=== PATIENT | male | born 1955 | race Caucasian/White ===

== ENCOUNTER 2017-11-19 11:21 | Emergency (ER) | payer SELFPAY ==
[~2017-11-19] VITALS: Ht 182.9 cm; Wt 109.8 kg
[2017-12-10] MEDS ORDERED: ROPIVACAINE 246.25 MG, EPINEPHRINE HCL 1:1000 0.5 MG, CLONIDINE HCL 0.08 MG, KETOROLAC ... INJ ONE ×5 (07:30)
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
--- OUTSIDE RECORDS SUMMARY | 2018-02-27 14:31 | XMS REPORT ---
Author Author [facility] Address Unknown Phone Unavailable Care Team Providers Care Inventory Control Supervisor Name Role Phone BRIDGET SALMON Unavailable Unavailable Problems This patient has no known problems. Allergies, Adverse Reactions, Alerts This patient has no known allergies or adverse reactions. Medications This patient has no known medications. Results Test Description Test Time Test Comments Text Results Atomic Results Result Comments POCT-GLUCOSE METER 2016-07-15 08:08:00 POC-GLUCOSE METER (BEAKER) (test goba=4533) 186 mg/dL 70-110 TESTED AT [facility] [address] [address] CBC W/PLT COUNT & AUTO [id number] 06:59:00* Test Item Value Reference Range Comments WHITE BLOOD CELL COUNT (BEAKER) (test ugdj=891) 7.1 K/ L 4.0-10.0 RED BLOOD CELL COUNT (BEAKER) (test qfqw=020) 3.43 M/ L 4.20-5.80 HEMOGLOBIN (BEAKER) (test vvkm=319) 11.0 GM/DL 13.0-16.8 HEMATOCRIT (BEAKER) (test nbhn=681) 32.1 % 40.0-50.0 MEAN CORPUSCULAR VOLUME (BEAKER) (test psti=599) 93.5 fL 82.0-98.0 MEAN CORPUSCULAR HEMOGLOBIN (BEAKER) (test dtii=364) 31.9 pg 27.0-33.0 MEAN CORPUSCULAR HEMOGLOBIN CONC (BEAKER) (test zemc=737) 34.2 GM/DL 32.0- 36.0 RED CELL DISTRIBUTION WIDTH (BEAKER) (test yxco=748) 13.1 % 10.3-14.2 PLATELET COUNT (BEAKER) (test bxwy=398) 351 K/CU MM 150-430 MEAN PLATELET VOLUME (BEAKER) (test gsyb=926) 5.4 fL 6.5-10.5 NUCLEATED RED BLOOD CELLS (BEAKER) (test jadj=812) 0 /100 WBC 0-0 NEUTROPHILS RELATIVE PERCENT (BEAKER) (test jmbl=962) 55 % LYMPHOCYTES RELATIVE PERCENT (BEAKER) (test scgy=996) 26 % MONOCYTES RELATIVE PERCENT (BEAKER) (test zdym=509) 12 % EOSINOPHILS RELATIVE PERCENT (BEAKER) (test nkjb=474) 7 % BASOPHILS RELATIVE PERCENT (BEAKER) (test dgzt=105) 1 % NEUTROPHILS ABSOLUTE COUNT (BEAKER) (test piee=596) 3.84 K/ L 1.80-8.00 LYMPHOCYTES ABSOLUTE COUNT (BEAKER) (test aelv=410) 1.82 K/ L 1.48-4.50 MONOCYTES ABSOLUTE COUNT (BEAKER) (test nvxv=867) 0.87 K/ L 0.00-1.30 EOSINOPHILS ABSOLUTE COUNT (BEAKER) (test hwzv=669) 0.48 K/ L 0.00-0.50 BASOPHILS ABSOLUTE COUNT (BEAKER) (test gmis=981) 0.05 K/ L 0.00-0.20 0.00BASIC METABOLIC [id number] 06:42:00* Test Item Value Reference Range Comments SODIUM (BEAKER) (test njws=645) 136 meq/L 136-145 POTASSIUM (BEAKER) (test buzw=424) 4.2 meq/L 3.5-5.1 CHLORIDE (BEAKER) (test pusq=641) 100 meq/L 98-107 CO2 (BEAKER) (test lxxv=038) 25 meq/L 22-29 BLOOD UREA NITROGEN (BEAKER) (test wuyh=129) 12 mg/dL 7-21 CREATININE (BEAKER) (test vezg=732) 1.13 mg/dL 0.57-1.25 GLUCOSE RANDOM (BEAKER) (test koiy=204) 158 mg/dL 70-105 CALCIUM (BEAKER) (test rltt=919) 9.4 mg/dL 8.4-10.2 EGFR (BEAKER) (test siax=1210) 66 mL/min/1.73 sq m ESTIMATED GFR IS NOT ACCURATE CREATININE CLEARANCE IN PREDICTING GLOMERULAR FILTRATION RATE. ESTIMATED GFR IS NOT APPLICABLE FOR DIALYSIS PATIENTS. POCT-GLUCOSE [id number] 21:23:00* Test Item Value Reference Range Comments POC-GLUCOSE METER (BEAKER) (test qiry=5217) 323 mg/dL 70-110 TESTED AT [address] [address] POCT-GLUCOSE [id number] 17:41:00* Test Item Value Reference Range Comments POC-GLUCOSE METER (BEAKER) (test zajh=5568) 225 mg/dL 70-110 TESTED AT [address] [address] POCT-GLUCOSE [id number] 11:49:00* Test Item Value Reference Range Comments POC-GLUCOSE METER (BEAKER) (test wtca=3777) 226 mg/dL 70-110 TESTED AT [address] [address] POCT-GLUCOSE [id number] 07:33:00* Test Item Value Reference Range Comments POC-GLUCOSE METER (BEAKER) (test boud=3837) 175 mg/dL 70-110 TESTED AT [address] [address] BASIC METABOLIC [id number] 07:18:00* Test Item Value Reference Range Comments SODIUM (BEAKER) (test uxun=246) 136 meq/L 136-145 POTASSIUM (BEAKER) (test xvnm=077) 3.8 meq/L 3.5-5.1 CHLORIDE (BEAKER) (test xkpr=068) 101 meq/L 98-107 CO2 (BEAKER) (test kkfe=963) 25 meq/L 22-29 BLOOD UREA NITROGEN (BEAKER) (test lyyo=158) 15 mg/dL 7-21 CREATININE (BEAKER) (test pusb=903) 1.08 mg/dL 0.57-1.25 GLUCOSE RANDOM (BEAKER) (test ovog=442) 167 mg/dL 70-105 CALCIUM (BEAKER) (test hjvl=980) 9.0 mg/dL 8.4-10.2 EGFR (BEAKER) (test hwgc=8557) 69 mL/min/1.73 sq m ESTIMATED GFR IS NOT ACCURATE CREATININE CLEARANCE IN PREDICTING GLOMERULAR FILTRATION RATE. ESTIMATED GFR IS NOT APPLICABLE FOR DIALYSIS PATIENTS. CBC W/PLT COUNT & AUTO [id number] 06:50:00* Test Item Value Reference Range Comments WHITE BLOOD CELL COUNT (BEAKER) (test ekfy=191) 5.4 K/ L 4.0-10.0 RED BLOOD CELL COUNT (BEAKER) (test fypa=098) 3.08 M/ L 4.20-5.80 HEMOGLOBIN (BEAKER) (test nczv=522) 9.7 GM/DL 13.0-16.8 HEMATOCRIT (BEAKER) (test qcwy=960) 28.5 % 40.0-50.0 MEAN CORPUSCULAR VOLUME (BEAKER) (test gpyw=568) 92.8 fL 82.0-98.0 MEAN CORPUSCULAR HEMOGLOBIN (BEAKER) (test vcru=068) 31.6 pg 27.0-33.0 MEAN CORPUSCULAR HEMOGLOBIN CONC (BEAKER) (test smzb=589) 34.0 GM/DL 32.0- 36.0 RED CELL DISTRIBUTION WIDTH (BEAKER) (test wmio=279) 13.2 % 10.3-14.2 PLATELET COUNT (BEAKER) (test pqxs=946) 292 K/CU MM 150-430 MEAN PLATELET VOLUME (BEAKER) (test ccvf=130) 5.5 fL 6.5-10.5 NUCLEATED RED BLOOD CELLS (BEAKER) (test hiti=565) 0 /100 WBC 0-0 NEUTROPHILS RELATIVE PERCENT (BEAKER) (test uymd=174) 65 % LYMPHOCYTES RELATIVE PERCENT (BEAKER) (test kmmz=969) 23 % MONOCYTES RELATIVE PERCENT (BEAKER) (test xzpl=167) 3 % EOSINOPHILS RELATIVE PERCENT (BEAKER) (test byep=722) 8 % BASOPHILS RELATIVE PERCENT (BEAKER) (test ytgs=565) 1 % NEUTROPHILS ABSOLUTE COUNT (BEAKER) (test lsfd=773) 3.52 K/ L 1.80-8.00 LYMPHOCYTES ABSOLUTE COUNT (BEAKER) (test bqqw=607) 1.23 K/ L 1.48-4.50 MONOCYTES ABSOLUTE COUNT (BEAKER) (test wswp=209) 0.18 K/ L 0.00-1.30 EOSINOPHILS ABSOLUTE COUNT (BEAKER) (test awtx=143) 0.43 K/ L 0.00-0.50 BASOPHILS ABSOLUTE COUNT (BEAKER) (test uiay=040) 0.05 K/ L 0.00-0.20 0.00POCT-GLUCOSE [id number] 23:48:00* Test Item Value Reference Range Comments POC-GLUCOSE METER (BEAKER) (test rvmx=4023) 235 mg/dL 70-110 TESTED AT [facility] [address] [address] POCT-GLUCOSE [id number] 17:23:00* Test Item Value Reference Range Comments POC-GLUCOSE METER (BEAKER) (test vzpd=9387) 168 mg/dL 70-110 TESTED AT [facility] [address] [address] POCT-GLUCOSE [id number] 12:58:00* Test Item Value Reference Range Comments POC-GLUCOSE METER (BEAKER) (test kvnu=1127) 271 mg/dL 70-110 TESTED AT [place] [id number] [address] POCT-GLUCOSE [id number] 07:34:00* Test Item Value Reference Range Comments POC-GLUCOSE METER (BEAKER) (test oiqo=2483) 154 mg/dL 70-110 TESTED AT [place] [id number] [facility] [address] [address] [id number] 03:59:00* Test Item Value Reference Range Comments MAGNESIUM (BEAKER) (test kauv=118) 1.8 mg/dL 1.6-2.6 BASIC METABOLIC [id number] 03:59:00* Test Item Value Reference Range Comments SODIUM (BEAKER) (test sgky=131) 134 meq/L 136-145 POTASSIUM (BEAKER) (test acgu=485) 4.3 meq/L 3.5-5.1 CHLORIDE (BEAKER) (test gydc=818) 101 meq/L 98-107 CO2 (BEAKER) (test inea=527) 25 meq/L 22-29 BLOOD UREA NITROGEN (BEAKER) (test jcmu=976) 18 mg/dL 7-21 CREATININE (BEAKER) (test cwfs=319) 1.16 mg/dL 0.57-1.25 GLUCOSE RANDOM (BEAKER) (test pcrz=714) 157 mg/dL 70-105 CALCIUM (BEAKER) (test rqcn=303) 9.2 mg/dL 8.4-10.2 EGFR (BEAKER) (test bggm=8154) 64 mL/min/1.73 sq m ESTIMATED GFR IS NOT ACCURATE CREATININE CLEARANCE IN PREDICTING GLOMERULAR FILTRATION RATE. ESTIMATED GFR IS NOT APPLICABLE FOR DIALYSIS PATIENTS. VANCOMYCIN LEVEL, [id number] 03:58:00* Test Item Value Reference Range Comments VANCOMYCIN TROUGH (BEAKER) (test vlgg=082) 21.0 ug/mL 10.0-20.0 CBC (HEMOGRAM ONLY)2016-07-13 03:57:00* Test Item Value Reference Range Comments WHITE BLOOD CELL COUNT (BEAKER) (test jfrb=512) 8.1 K/ L 4.0-10.0 RED BLOOD CELL COUNT (BEAKER) (test ltdi=153) 3.20 M/ L 4.20-5.80 HEMOGLOBIN (BEAKER) (test aypo=889) 10.1 GM/DL 13.0-16.8 HEMATOCRIT (BEAKER) (test hmgn=501) 30.3 % 40.0-50.0 MEAN CORPUSCULAR VOLUME (BEAKER) (test tgvu=812) 94.8 fL 82.0-98.0 MEAN CORPUSCULAR HEMOGLOBIN (BEAKER) (test utax=189) 31.7 pg 27.0-33.0 MEAN CORPUSCULAR HEMOGLOBIN CONC (BEAKER) (test rcic=603) 33.4 GM/DL 32.0- 36.0 RED CELL DISTRIBUTION WIDTH (BEAKER) (test ujeb=549) 12.1 % 10.3-14.2 PLATELET COUNT (BEAKER) (test bguz=190) 300 K/CU MM 150-430 MEAN PLATELET VOLUME (BEAKER) (test mdzu=002) 5.5 fL 6.5-10.5 NUCLEATED RED BLOOD CELLS (BEAKER) (test qizv=006) 0 /100 WBC 0-0 0.00POCT-GLUCOSE [id number] 21:44:00* Test Item Value Reference Range Comments POC-GLUCOSE METER (BEAKER) (test wllo=4509) 367 mg/dL 70-110 TESTED AT [place] [id number] [address] POCT-GLUCOSE [id number] 17:04:00* Test Item Value Reference Range Comments POC-GLUCOSE METER (BEAKER) (test dvll=4026) 239 mg/dL 70-110 TESTED AT [place] [id number] [facility] [address] POCT-GLUCOSE [id number] 11:45:00* Test Item Value Reference Range Comments POC-GLUCOSE METER (BEAKER) (test soms=1047) 145 mg/dL 70-110 TESTED AT [address] [address] POCT-GLUCOSE [id number] 07:52:00* Test Item Value Reference Range Comments POC-GLUCOSE METER (BEAKER) (test mnpn=7289) 136 mg/dL 70-110 TESTED AT [facility] [address] [address] CBC (HEMOGRAM ONLY)2016-07-12 06:39:00* Test Item Value Reference Range Comments WHITE BLOOD CELL COUNT (BEAKER) (test ogfi=815) 10.6 K/ L 4.0-10.0 RED BLOOD CELL COUNT (BEAKER) (test babr=605) 3.61 M/ L 4.20-5.80 HEMOGLOBIN (BEAKER) (test rvvk=970) 11.0 GM/DL 13.0-16.8 HEMATOCRIT (BEAKER) (test vzrg=656) 34.8 % 40.0-50.0 MEAN CORPUSCULAR VOLUME (BEAKER) (test rtcv=928) 96.6 fL 82.0-98.0 MEAN CORPUSCULAR HEMOGLOBIN (BEAKER) (test qatc=249) 30.6 pg 27.0-33.0 MEAN CORPUSCULAR HEMOGLOBIN CONC (BEAKER) (test mchn=373) 31.6 GM/DL 32.0- 36.0 RED CELL DISTRIBUTION WIDTH (BEAKER) (test btdz=313) 12.4 % 10.3-14.2 PLATELET COUNT (BEAKER) (test npbc=611) 351 K/CU MM 150-430 MEAN PLATELET VOLUME (BEAKER) (test yxrx=561) 5.6 fL 6.5-10.5 NUCLEATED RED BLOOD CELLS (BEAKER) (test empw=918) 0 /100 WBC 0-0 [id number] 05:27:00* Test Item Value Reference Range Comments MAGNESIUM (BEAKER) (test gspg=065) 1.5 mg/dL 1.6-2.6 BASIC METABOLIC [id number] 05:27:00* Test Item Value Reference Range Comments SODIUM (BEAKER) (test vflh=975) 130 meq/L 136-145 POTASSIUM (BEAKER) (test zfvz=063) 4.3 meq/L 3.5-5.1 CHLORIDE (BEAKER) (test whux=754) 97 meq/L 98-107 CO2 (BEAKER) (test ffii=031) 24 meq/L 22-29 BLOOD UREA NITROGEN (BEAKER) (test oome=960) 14 mg/dL 7-21 CREATININE (BEAKER) (test vqgx=412) 1.15 mg/dL 0.57-1.25 GLUCOSE RANDOM (BEAKER) (test arww=623) 155 mg/dL 70-105 CALCIUM (BEAKER) (test qcbv=470) 9.3 mg/dL 8.4-10.2 EGFR (BEAKER) (test pyau=9801) 64 mL/min/1.73 sq m ESTIMATED GFR IS NOT ACCURATE CREATININE CLEARANCE IN PREDICTING GLOMERULAR FILTRATION RATE. ESTIMATED GFR IS NOT APPLICABLE FOR DIALYSIS PATIENTS. POCT-GLUCOSE [id number] 22:53:00* Test Item Value Reference Range Comments POC-GLUCOSE METER (BEAKER) (test qshk=7223) 164 mg/dL 70-110 TESTED AT [place] [id number] POCT-GLUCOSE [id number] 17:14:00* Test Item Value Reference Range Comments POC-GLUCOSE METER (BEAKER) (test oukd=7962) 148 mg/dL 70-110 TESTED AT [address] [address]
--- OUTSIDE RECORDS SUMMARY | 2018-02-27 14:31 | XMS REPORT | Clinical Summary ---
Author Author [facility] Address Unknown Phone Unavailable Care Team Providers Care School Services Officer Name Role Phone PCP Unavailable Allergies No Known Allergies Current Medications Prescription Sig. Disp. Refills Start End Date Status Date insulin NPH 100 unit/mL Inject subcutaneously 2 Active (3 mL) InPn (two) times daily before meals. atorvastatin (LIPITOR) 80 Take 1 tablet (80 mg 90 tablet 3 07/15/19 Active MG tablet total) by mouth daily. 17 metoprolol (TOPROL-XL) 50 Take 1 tablet (50 mg 90 tablet 3 07/15/19 Active MG 24 hr tablet total) by mouth 2 (two) 17 times daily. metFORMIN (GLUCOPHAGE) Take 1 tablet (500 mg 180 tablet 3 07/15/19 Active 500 MG tablet total) by mouth 2 (two) 17 times daily with breakfast and dinner. amLODIPine (NORVASC) 5 MG Take 5 mg by mouth daily. Active tablet amLODIPine (NORVASC) 5 MG Take 1 tablet (5 mg 90 tablet 3 07/15/19 07/15/19 tablet total) by mouth daily. 17 18 aspirin 81 MG chewable Take 1 tablet (81 mg 90 tablet 3 20 tablet total) by mouth daily. 17 18 Active Problems Problem Noted Date Post-operative state 07/20/2016 Postoperative anemia due to acute blood loss 07/10/2016 Acute pulmonary insufficiency following thoracic surgery (HCC) 07/07/2016 Hyperglycemia, unspecified 07/07/2016 Dehiscence of operative wound, initial encounter 07/05/2016 Superficial postoperative wound infection, initial encounter 07/05/2016 Hypertension 05/24/2016 Hyponatremia 05/24/2016 Tachycardia 05/24/2016 Hyperglycemia 05/23/2016 S/P CABG x 3 05/22/2016 Acute pulmonary insufficiency following thoracic surgery ([facility]) 05/22/2016 Morbid obesity ([facility]) 05/22/2016 Hypertension 05/22/2016 Postoperative anemia 05/22/2016 Cardiogenic shock ([facility]) 05/22/2016 Encounter for management of intra-aortic balloon pump 05/22/2016 Type II diabetes mellitus ([facility]) 05/22/2016 CAD (coronary artery disease), [place] coronary artery 05/22/2016 Anemia due to acute blood loss 05/22/2016 ACS (acute coronary syndrome) ([facility]) 05/19/2016 Ventral hernia Encounters Date Type Specialty Care Team Description 09/24/2017 Orders Only Cardiology Herve Barahona, Ventral hernia without MD obstruction or gangrene (Primary Dx) 08/20/2017 Office Visit Cardiology Herve Barahona, Coronary artery disease MD of [place] heart with stable angina pectoris, unspecified vessel or lesion type ([facility]) (Primary Dx);Ventral hernia without obstruction or gangrene after 11/18/2016 Immunizations Name Dates Previously Given Next Due Influenza Three-TIV PF 5+ 05/20/2016 YR Family History Medical History Relation Name Comments Alcohol abuse Father Heart disease Mother Relation Name Status Comments Father Mother Social History Tobacco Use Types Packs/Day Years Used Date Never Smoker Smokeless Tobacco: Never Used Alcohol Use Drinks/Week oz/Week Comments No Sex Assigned at Date Recorded Not on file Last Filed Vital Signs Vital Sign Reading Time Taken Blood Pressure 140/64 08/20/2017 11:11 AM CDT Pulse 76 08/20/2017 11:11 AM CDT Temperature 37 C (98.6 F) 08/20/2017 11:11 AM CDT Respiratory Rate 18 08/20/2017 11:11 AM CDT Oxygen Saturation 98% 08/20/2017 11:11 AM CDT Inhaled Oxygen - - Concentration Weight 113.9 kg (251 lb 1.6 oz) 08/20/2017 11:11 AM CDT Height 182.9 cm (6') 08/20/2017 11:11 AM CDT Body Mass Index 34.06 08/20/2017 11:11 AM CDT Plan of Treatment Health Maintenance Due Date Last Done Comments INFLUENZA VACCINE 02/25/2018 05/20/2016 Results Not on fileafter 11/18/2016
== END 2017-11-19 12:20 | disposition left against medical advice (07) ==
LOC: ER 11:21
DX: Z76.0 Encounter for issue of repeat prescription (principal)
CPT/HCPCS: 36415; 82948